=== PATIENT | female | born 1990 | race Caucasian/White ===

== ENCOUNTER 2017-12-28 11:20 | Emergency (ER) ==
[2017-12-28 11:25] VITALS: BP 132/76; TEMP 97.9; BMI 32.2
--- NOTE | 2017-12-28 11:38 | ED.PDOC ---
General ED Provider: Dr. LORRAINE JACKSON Chief Complaint: Respiratory Complaint Stated Complaint: flu like symp Time Seen by Physician: 11:20 (seen with court at all times ) Mode of Arrival: Walk-In Information Source: Patient Exam Limitations: No limitations Nursing and Triage Documentation Reviewed and Agree: Yes Reviewed sepsis parameters & appropriate labs ordered?: Yes System Inflammatory Response Syndrome: Not Applicable Sepsis Protocol: For patient's 13 years and over: Temp is 96.8 and below OR 101 and greater Pulse >90 BPM Resp >20/minute Acutely Altered Mental Status Are patient's symptoms suggestive of a new infection, such as: -Pneumonia -Skin, Soft Tissue -Endocarditis -UTI -Bone, Joint Infection -Implantable Device -Acute Abdominal Infection -Wound Infection -Meningitis -Blood Stream Catheter Infection -Unknown System Inflammatory Response Syndrome: Not Applicable Respiratory Complaint Exam - Respiratory Complaint/Exam Onset/Duration: 1 day Symptoms Are: Still present Timing: Intermittent Initial Severity: Moderate Current Severity: Mild Location: Nose, Throat, Chest Character: Reports: Non-productive cough Aggravating: Reports: None Alleviating: Reports: None Associated Signs and Symptoms: Reports: URI, Nasal congestion. Denies: Rapid breathing, Dyspnea, Fever, Chills, Chest pain, Pleuritic chest pain, Wheezing, Hemoptysis, Dizziness, Calf pain, Calf swelling, Edema, Hoarseness, Sinus discomfort, Vomiting, Sore throat, Weight loss, Decreased oral intake, Increased thirst, Increased appetite, Increased urination Related History: Reports: Similar episode History of Healthcare-Acquired Pneumonia: No Related Surgical History: Reports: None Pulmonary Embolism Risk Factors: None Cardiac Risk Factors: Reports: None Pseudomonas Risk Factors: Reports: Chronic Lung Disease Tuberculosis Risk Factors: Reports: None Status Asthmaticus Risk Factors: Reports: None Home Oxygen Use: No Recent Stress Test: No Recent Echo/LV Function: No Current Antibiotic Use: No Current Asthma Medication Use: No Respiratory Distress: None Inadequate Respiratory Effort: No Dysphagia Present: No Stridor Present: No JVD Present: No Retractions: Not Present Diminished Breath Sounds: No Sinus Tenderness: None Grunting Respirations: No Kussmaul Respirations: No Differential Diagnoses: Pneumonia, Bronchitis Review of Systems - Review Of Systems Constitutional: Reports: Fever, Malaise Eyes: Reports: No symptoms Ears, Nose, Mouth, Throat: Reports: Nose discharge Respiratory: Reports: Cough Cardiac: Reports: No symptoms GI: Reports: No symptoms : Reports: No symptoms Musculoskeletal: Reports: No symptoms Skin: Reports: No symptoms Neurological: Reports: No symptoms Endocrine: Reports: No symptoms Hematologic/Lymphatic: Reports: No symptoms All Other Systems: Reviewed and Negative Past Medical History - Past Medical History Previously Healthy: Yes Endocrine: Reports: None Cardiovascular: Reports: None Respiratory: Reports: None Hematological: Reports: None Gastrointestinal: Reports: None Genitourinary: Reports: None Neuro/Psych: Reports: None Musculoskeletal: Reports: None Cancer: Reports: None Last Menstrual Period: yesterday - Surgical History General Surgical History: Reports: None - Family History Family History: Reports: None - Social History Smoking Status: Never smoker Hx Substance Use: No Alcohol Screening: None Physical Exam - Physical Exam Appearance: Well-appearing, No pain distress, Well-nourished Eyes: HALI, EOMI, Conjunctiva clear ENT: Ears normal, Nose normal, Oropharynx normal Respiratory: Rhonchi Cardiovascular: RRR, Pulses normal, No rub, No murmur GI/: Soft, Nontender, No masses, Bowel sounds normal, No Organomegaly Musculoskeletal: Normal strength, ROM intact, No edema, No calf tenderness Skin: Warm, Dry, Normal color Neurological: Sensation intact, Motor intact, Reflexes intact, Cranial nerves intact, Alert, Oriented Psychiatric: Affect appropriate, Mood appropriate Critical Care Note - Critical Care Note Total Time (mins): 0 Course - Course Orders, Labs, Meds: Orders Category Date Time Status FLU A/B MOLECULAR Stat LAB 12/28/17 11:32 Uncollected MOLECULAR GROUP A STREP Stat LAB 12/28/17 11:32 Uncollected Vital Signs: Temp Pulse Resp BP Pulse Ox 12/28/17 11:20 97.9 F 73 16 132/76 98 Departure - Departure Time of Disposition: 11:38 Disposition: HOME SELF-CARE Discharge Problem: Acute viral syndrome Instructions: Viral Syndrome (ED) Condition: Good Pt referred to PMD for follow-up: Yes IPMP verified?: Yes Additional Instructions: Please call your Family Physician as soon as possible to schedule a follow-up appointment. Prescriptions: Amoxicillin 500 mg PO Q8HR #21 tablet Hydrocodone/Chlorphen Polis [Tussionex] 5 ml PO Q12H 3 Days disp.syrin Prednisone 20 mg PO DAILYWM #5 tablet Allergies/Adverse Reactions: Allergies No Known Allergies Allergy (Verified 12/28/17 11:25) Home Medications: Ambulatory Orders Amoxicillin 500 mg PO Q8HR #21 tablet 12/28/17 Citalopram Hydrobromide [Celexa] 20 mg PO DAILY 12/28/17 Hydrocodone/Chlorphen Polis [Tussionex] 5 ml PO Q12H 3 Days disp.syrin Prednisone 20 mg PO DAILYWM #5 tablet 12/28/17 Disposition Discussed With: Patient
== END 2017-12-28 12:21 | disposition home or self-care (01) ==
LOC: ED 11:20
DX: B34.9 Viral infection, unspecified (principal)
CPT/HCPCS: 87502; 87651; 99283

== ENCOUNTER 2018-02-13 11:37 | Emergency (ER) ==
[2018-02-13 11:42] VITALS: BP 111/70; TEMP 98; BMI 32.7
[2018-02-13] MEDS ORDERED: TORADOL IM STA (11:51)
[2018-02-13] MEDS ORDERED: PHENERGAN 25 MG/ML VIAL IM STA (11:51)
--- NOTE | 2018-02-13 11:55 | ED.PDOC ---
General ED Provider: Dr. SUSAN ALMAZAN MD Chief Complaint: Headache Stated Complaint: headache Time Seen by Physician: 12:00 Mode of Arrival: Walk-In Information Source: Patient Exam Limitations: No limitations Nursing and Triage Documentation Reviewed and Agree: Yes Reviewed sepsis parameters & appropriate labs ordered?: Yes System Inflammatory Response Syndrome: Temp 96.8F or Lower Sepsis Protocol: For patient's 13 years and over: Temp is 96.8 and below OR 101 and greater Pulse >90 BPM Resp >20/minute Acutely Altered Mental Status Are patient's symptoms suggestive of a new infection, such as: -Pneumonia -Skin, Soft Tissue -Endocarditis -UTI -Bone, Joint Infection -Implantable Device -Acute Abdominal Infection -Wound Infection -Meningitis -Blood Stream Catheter Infection -Unknown Neurological Complaint Exam - Headache Complaint/Exam Onset: Gradual Symptoms Are: Still present Timing: Intermittent Episodes Lasting: Days Worst Headache Ever: No (few headaches a year) Initial Severity: Mild Current Severity: Severe Location: Occipital Character: Reports: Radiating Aggravating: Reports: Bright lights Alleviating: Reports: None Associated Signs and Symptoms: Reports: Nausea Related History: Reports: Similar episode Related Surgical History: Reports: None SAH Risk Factors: Reports: None Meningitis Risk Factors: Reports: None SDH Risk Factors: Reports: None Temporal Arteritis Risk Factors: Reports: None Normal Head CT Within Last 12 Months: No Fundoscopic Exam: Present: Normal Findings Papilledema Present: No Temporal Artery Tenderness: Present: None Sinus Tenderness: Present: None TMJ Tenderness: Present: None Meningeal Signs Positive: No Pain on Passive Flexion-Positive Kernig's: No ROM Limited In: No Limitiations Focal Weakness: Present: None Focal Sensory Loss: Present: None Gait: Normal Nystagmus Present: No Gag Reflex Present: No [id number]: Normal Findings Heel to Toe Normal: Yes Review of Systems - Review Of Systems Constitutional: Reports: Other (nausea) Eyes: Reports: Photophobia Ears, Nose, Mouth, Throat: Reports: No symptoms Respiratory: Reports: No symptoms Cardiac: Reports: No symptoms GI: Reports: No symptoms : Reports: No symptoms Musculoskeletal: Reports: No symptoms Skin: Reports: No symptoms Neurological: Reports: Headache Endocrine: Reports: No symptoms Hematologic/Lymphatic: Reports: No symptoms All Other Systems: Reviewed and Negative Past Medical History - Past Medical History Previously Healthy: Yes Endocrine: Reports: None Cardiovascular: Reports: None Respiratory: Reports: None Hematological: Reports: None Gastrointestinal: Reports: None Genitourinary: Reports: None Neuro/Psych: Reports: None Musculoskeletal: Reports: None Cancer: Reports: None Last Menstrual Period: iud--not having periods - Surgical History General Surgical History: Reports: None - Family History Family History: Reports: None - Social History Smoking Status: Never smoker Hx Substance Use: No Alcohol Screening: None Physical Exam - Physical Exam Appearance: Well-appearing Ill-appearing: Mild Pain Distress: Severe Eyes: HALI, EOMI, Conjunctiva clear ENT: Ears normal, Nose normal, Oropharynx normal Respiratory: Airway patent, Breath sounds clear, Breath sounds equal, Respirations nonlabored Cardiovascular: RRR, Pulses normal, No rub, No murmur GI/: Soft, Nontender, No masses, Bowel sounds normal, No Organomegaly Musculoskeletal: Normal strength, ROM intact, No edema, No calf tenderness Skin: Warm, Dry, Normal color Neurological: Sensation intact, Motor intact, Reflexes intact, Cranial nerves intact, Alert, Oriented Psychiatric: Affect appropriate, Mood appropriate Re-Evaluation - Re-Evaluation Time of Re-Evaluation: 12:45 Status: Improved (hardly any pain at All) Vital Signs Stable: Yes Appearance: NAD Lungs: Clear Skin: Warm and Dry Neuro: Alert and Oriented X3 CV: RRR Critical Care Note - Critical Care Note Total Time (mins): 0 Course - Course Orders, Labs, Meds: Orders Category Date Time Status Ketorolac Tromethamine [Toradol] MEDS 02/13/18 11:51 Discontinued 60 mg IM ONCE STA Promethazine HCl [Phenergan 25 mg/ml Vial] MEDS 02/13/18 11:51 Discontinued 25 mg IM ONCE STA Medications Discontinued Medications Generic Name Dose Route Start Last Admin Trade Name Freq PRN Reason Stop Dose Admin Ketorolac Tromethamine 60 mg 02/13/18 11:51 02/13/18 12:05 Toradol IM 02/13/18 11:52 60 mg ONCE STA Administration Promethazine HCl 25 mg 02/13/18 11:51 02/13/18 12:06 Phenergan 25 Mg/Ml Vial IM 02/13/18 11:52 25 mg ONCE STA Administration Vital Signs: Temp Pulse Resp BP Pulse Ox 02/13/18 11:38 98.0 F 72 16 111/70 98 Departure - Departure Time of Disposition: 13:00 (with ) Disposition: HOME SELF-CARE Discharge Problem: Headache Instructions: Acute Headache (ED) Condition: Good Pt referred to PMD for follow-up: Yes IPMP verified?: No Additional Instructions: home and rest in a cool, dark room follow up with your doctor if you continue to have problems. Allergies/Adverse Reactions: Allergies No Known Allergies Allergy (Verified 02/13/18 22:03) Home Medications: Ambulatory Orders Citalopram Hydrobromide [Celexa] 20 mg PO DAILY 12/28/17 Levonorgestrel [Mirena] 1 each IY DIRECTED 02/13/18 Butalb/Acetaminophen/Caffeine [Fioricet 50-300-40 mg Capsule] 1 each PO TID PRN #10 capsule 02/14/18 Ondansetron HCl [Zofran Tab] 4 mg PO Q8H PRN #14 tablet 02/14/18 Disposition Discussed With: Family ()
== END 2018-02-13 13:28 | disposition home or self-care (01) ==
LOC: ED 11:37
DX: R51 Headache (principal)
CPT/HCPCS: 96372; 99283

== ENCOUNTER 2018-02-13 21:52 | Emergency (ER) ==
[2018-02-13 22:03] VITALS: BP 102/65; TEMP 98.5; BMI 32.5
[2018-02-13] MEDS ORDERED: ZOFRAN 4 MG/2 ML IVP STA (22:12)
[2018-02-13] MEDS ORDERED: SODIUM CHLORIDE 1,000 ML IV STA (22:12)
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
[2018-02-13] MEDS ORDERED: IMITREX SUBCUT STA (22:51)
[2018-02-13] MEDS ORDERED: NORFLEX IVP STA (22:51)
--- NOTE | 2018-02-13 23:07 | CT ---
EXAM: CT head without contrast. HISTORY: Headache. PROCEDURE: Contiguous axial CT images of the head without contrast with coronal and sagittal reforma ts. FINDINGS: The ventricles and basal cisterns are normal in size and configuration. No evidence of ma ss or midline shift. No intracranial hemorrhage or evidence of large vessel infarct. No extra-axial fluid collection. The paranasal sinuses and mastoid air cells are well-aerated. Impression: Negative CT of the head.
[2018-02-13] MEDS ORDERED: DILAUDID 1 MG/ML SYRINGE IVP STA (23:32)
[2018-02-13] MEDS: DILAUDID 1 MG/ML SYRINGE ONE ×2 (23:34→23:58)
== END 2018-02-14 00:50 | disposition home or self-care (01) ==
LOC: ED 21:52
DX: G43.011 Migraine without aura, intractable, with status migrainosus (principal)
CPT/HCPCS: 36415; 80053; 80306; 84703; 85025; 96361; 96372; 96374; 96375; 99283